=== PATIENT | male | born 1965 | race African-American/Black ===

== ENCOUNTER → 2021-01-25 11:06 | Outpatient (CLI) | payer OTHER, SELFPAY ==
--- NOTE | 2021-01-25 | DI.RAD.S_ITS ---
PROCEDURE: FL BARIUM SWALLOW INDICATIONS: Dysphagia COMPARISON: None. FINDINGS: Function: There is normal esophageal peristalsis. No elicited gastroesophageal reflux. There is normal transit of a calibrated barium tablet through the esophagus into the stomach. Morphology: The upper esophagus at level of upper esophageal sphincter appears somewhat irregular. Esophagus is otherwise normal mucosal morphology. No esophageal strictures, extrinsic mass effects, or diverticula. There is a small hiatal hernia. Limited images of the stomach demonstrate normal appearance. Note is made of moderate degenerative disc disease with prominent anterior osteophytes at C4-C5 and C5-C6. IMPRESSION: 1. There is irregularity of the upper esophagus at the upper esophageal sphincter. Upper endoscopy is suggested for follow-up evaluation. 2. Small hiatal hernia. 3. Degenerative disc disease. There are prominent anterior osteophytes at C4-C5 and C5-C6. Dictated by: Zafar Castro M.D. on 01/25/2021 at 12:40 Approved by: Zafar Castro M.D. on 01/25/2021 at 12:55
== END ==
PROVIDERS: PCP Internal Medicine; Referring Provider Internal Medicine Gastroenterology; Visit Provider Internal Medicine Gastroenterology
DX: R13.10 Dysphagia, unspecified (principal); K44.9 Diaphragmatic hernia without obstruction or gangrene; M50.321 Other cervical disc degeneration at C4-C5 level
CPT/HCPCS: 74220

== ENCOUNTER → 2021-03-21 12:57 | Outpatient (CLI) | payer OTHER, SELFPAY ==
[2021-03-21 16:51] LABS: COVID19 -Nasal RAPID Negative (Negative)
== END ==
PROVIDERS: PCP Internal Medicine; Visit Provider Physician Assistant
DX: Z01.812 Encounter for preprocedural laboratory examination (principal); Z20.822 Contact with and (suspected) exposure to COVID-19
CPT/HCPCS: 87635

== ENCOUNTER 2021-03-23 09:05 | Day surgery (SDC) | payer OTHER, SELFPAY ==
[2021-03-23] VITALS (8 sets, daily range): BP systolic 88–129; BP diastolic 50–84; PULSE 55–67; RESP 16–18; TEMP 36.2–36.7; O2SAT 97–100; BMI 29.0
[2021-03-23] MEDS: SODIUM CHLORIDE 0.9% 1,000 ML 100 ML IV (09:45)
--- NOTE | 2021-03-23 10:33 | PM.HP.1 ---
History of Present Illness History of Present Illness Date Patient Seen: 03/23/21 Chief complaint: SDC Narrative: Dysphagia Patient History Medical History (Updated 03/22/21 @ 14:51 by Wanda Gunn RN) GE reflux Hyperlipidemia Family & Social History Social History: household members spouse Tobacco & Substance use: Smoking Status Former smoker alcohol intake former Substance Use Type does not use Meds Home Medications and Allergies Home Medications Medication Instructions Recorded Confirmed Type ESOMEPRAZOLE SODIUM (NEXIUM) 20 mg PO BIDAC #0 01/16/12 03/23/21 History Claritin PO PRN 03/22/21 History Allergies Allergy/AdvReac Type Severity Reaction Status Date / Time No Known Drug Allergies Allergy Verified 03/23/21 09:26 Exam Vital Signs (past 8 hours): - 03/23/21 09:35 Temperature 97.2 F L Pulse Rate 62 Respiratory Rate 16 Blood Pressure 117/75 Pulse Oximetry 99 Oxygen Delivery Method Room Air Narrative Exam Narrative: Oropharynx free of lesions Chest clear to auscultation percussion Cardiac exam reveals no S3 or murmur Assessment & Plan Assessment & Plan narrative: Dysphagia rule out stricture. Risks, benefits, alternatives have been explained.
--- NOTE | 2021-03-23 10:34 | PM.OP.ENDO ---
Operative Date/Time/Diagnoses Date of procedure: 03/23/21 Pre-op diagnosis: See indication and findings Procedure & Clinicians Study performed: EGD Same procedure as scheduled: Yes Indications: Dysphagia Surgeon: Meir Hilario Procedure Notes Procedure in detail: After informed consent was obtained the patient was placed in left lateral decubitus position. The video upper scope was placed into the oropharynx and with the patient's help swallowed into the esophagus. The esophagus stomach and duodenum were carefully examined. On withdrawal, retroflexed view the GE junction was performed. Scope was removed. The patient tolerated procedure well. Blood loss none Complications none Sedation Total sedation time 10 minutes Versed for 6 mg fentanyl 100 micro g IV titration Findings 1. No abnormality at the upper esophageal sphincter. No evidence for a Zenker's diverticulum nor any evidence to correspond to the ?irregularities in Yuri did and the time of barium swallow. 2. Somewhat edematous mucosa at the distal esophagus. In addition at least 2 erosions were seen for LA classification B. 3. Normal stomach proximal and distally 4. Normal duodenal bulb and sweep Patient should increase his omeprazole to 20 b.i.d. and then touch base with us again in 2-4 weeks. If dysphagia not much improved then consider esophageal manometry.
[2021-03-23] MEDS: fentaNYL 250 MCG/5 ML INJ IV (11:03)
[2021-03-23] MEDS: MIDAZOLAM 5 MG/5 ML VIAL IV (11:11)
--- NOTE | 2021-03-23 12:40 | SUR.PHASEII ---
1205-Pt up and ambulating gait steady, all dc instructions given and pt verbalizes understanding, dressed and ready to go. Pt dcd via wc in stable condition with no complaints and in good spirits
== END 2021-03-23 12:05 | disposition home or self-care (01) ==
PROVIDERS: PCP Internal Medicine; Referring Provider Internal Medicine Gastroenterology; Visit Provider Internal Medicine Gastroenterology
PROC: 0DJ08ZZ Inspection of Upper Intestinal Tract, Via Natural or Artificial Opening Endoscopic (ICD-10-PCS; CPT 43235; principal; 2021-03-23 10:30)
DX: R13.10 Dysphagia, unspecified (principal); E78.5 Hyperlipidemia, unspecified
CPT/HCPCS: 43235; J2250; J3010

== ENCOUNTER 2022-04-30 19:34 | Emergency (ER) | payer OTHER, SELFPAY ==
[2022-04-30 19:47] VITALS: BP 124/83; PULSE 106; RESP 20; TEMP 36.8; O2SAT 96; BMI 27.2
[2022-04-30 20:40] VITALS: O2SAT 100
[2022-04-30 20:41] VITALS: BP 132/89; PULSE 83; O2SAT 99
--- NOTE | 2022-04-30 21:44 | ED_ITS ---
HPI - General Adult General Chief complaint: Extremity Injury, Upper Stated complaint: left shoulder pain/knot/pinched nerve x5 days Time Seen by Provider: 04/30/22 21:43 Source: patient Mode of arrival: Ambulatory History of Present Illness HPI narrative: Otherwise healthy 56-year-old gentleman with a history of occasional neck pain and low back pain getting back to the gym and had increased weights on April 23. Or overhead work and heavier weights overall. [place] fine while he was doing the exercises by the next day he noted some tenderness in the upper portion of the trapezius muscle left side. That spasm has gotten progressively worse over the last 3-4 days and now is causing radicular pain down the left arm in a C6 distribution. He is not having numbness or weakness simply severe pain that is causing him to lose sleep. He is having difficulty finding a comfortable position to even relax into. He has been using ibuprofen, Tylenol and methocarbamol. The methocarbamol helped slightly with the muscle spasm none of the medications are helping with radicular nerve pain. He has had no fever, cough, chills. No nausea, vomiting, abdominal pain, constipation or diarrhea. No chest pain palpitations or headache. Related Data Home Medications Medication Instructions Recorded Confirmed Claritin PO PRN allergies 03/22/21 01/18/22 omeprazole 20 mg tablet,delayed 20 mg PO DAILY 01/18/22 01/18/22 release Previous Rx's Medication Instructions Recorded celecoxib 200 mg capsule (Celebrex) 200 mg PO DAILY #30 caps 04/24/22 dexamethasone 4 mg tablet 10 mg PO DAILY #5 tabs 04/30/22 methocarbamol 500 mg tablet 500 mg PO TID #20 tabs 04/30/22 oxycodone-acetaminophen 5 mg-325 1 tab PO Q6H PRN pain #10 tabs 04/30/22 mg tablet Allergies Allergy/AdvReac Type Severity Reaction Status Date / Time No Known Drug Allergies Allergy Verified 01/18/22 08:17 Review of Systems Review of Systems Narrative: Remainder of complete review of systems is otherwise unremarkable except for th at included in the HPI. Patient History Medical History Acute degenerative joint disease of shoulder region GE reflux Hyperlipidemia Shoulder impingement syndrome Supraspinatus sprain Surgical History H/O colonoscopy History of esophagogastroduodenoscopy (EGD) Family History Father AA (alcohol abuse) Social History household members: spouse Smoking Status: Former smoker alcohol intake: former Smoking Status: Former smoker Substance Use Type: does not use Exam Initial Vital Signs Initial Vital Signs: Vital Signs Temperature 98.2 F 04/30/22 19:47 Pulse Rate 106 H 04/30/22 19:47 Respiratory Rate 20 04/30/22 19:47 Blood Pressure 124/83 04/30/22 19:47 Pulse Oximetry 96 04/30/22 19:47 Oxygen Delivery Method 04/30/22 19:47 General: Alert appropriate, able to cooperate fully with exam. Continuous movement attempting to find a comfortable position for his neck and arm Neck: No midline cervical tenderness. He does have some tenderness and palpable spasm in the upper trapezius muscle on the left side. No skin changes, rashes down the posterior aspect of his arm. Respiratory: Able to speak in full sentences, no obvious respiratory distress Skin: No obvious rashes, warm and dry Neurologic: Grossly intact no obvious asymmetries or abnormalities, no parest hesia or weakness appreciated in the left upper arm, elbow, wrist flexion/extension, hand pr fingers Psych: appropriate insight and affect, cooperative Course Orders Ordered: Discontinued Medications Dexamethasone (Dexamethasone 4 Mg Tablet) 8 mg PO NOW ONE Stop: 04/30/22 22:01 Last Admin: 04/30/22 22:10 Dose: 8 mg Documented By: LUKAS Ketorolac Tromethamine (Ketorolac 30 Mg/Ml Vial) 30 mg IM NOW ONE Stop: 04/30/22 22:01 Last Admin: 04/30/22 22:10 Dose: 30 mg Documented By: LUKAS Oxycodone/Acetaminophen (Oxycodone/Acetaminophen 5/325 Tablet) 1 tab PO NOW ONE Stop: 04/30/22 22:01 Last Admin: 04/30/22 22:11 Dose: 1 tab Documented By: LUKAS Oxycodone/Acetaminophen (Oxycodone/Apap 5/325 Prepack) 1 bottle MISC SEEINSTR ONE Stop: 04/30/22 22:01 Last Admin: 04/30/22 22:10 Dose: 1 bottle Documented By: KP Vital Signs Vital signs: Vital Signs - 8 hr 04/30/22 20:40 04/30/22 20:41 04/30/22 20:41 Pulse Rate 83 Blood Pressure 132/89 Pulse Oximetry 100 99 04/30/22 22:16 04/30/22 22:16 Pulse Rate Blood Pressure 151/79 H Pulse Oximetry 94 Medical Decision Making MDM Narrative Medical decision making narrative: 56-year-old gentleman with mild overuse injury trapezius neck muscle spasm now with radiculopathy. No evidence of acute trauma, diskitis, epidural abscess. He is given a soft collar, 3 days of Decadron and 3 day course of Percocet to help with the severe pain. He will follow-up with his orthopedic surgeon at symptoms are not improving. He is safe for home discharge Discharge Plan Departure Patient Disposition: Home Clinical Impression: Trapezius muscle spasm, Radicular pain in left arm Instructions: DI for Sciatica, DI for Arm Pain Activity Restrictions/Additional Instructions: Thank you for coming in today I am sorry you are suffering with this. You clearly irritated your trapezius muscle in her having significant muscle spasm. For this, using 400 mg of ibuprofen (2 [id number] pills) and 1 Tylenol every 6 hours can be very helpful in controlling pain. You have mentioned that methocarbamol was also helpful. You can continue to use that as well. With the pain traveling down the back of your arm, this is from nerve irritation and is similar to sciatic pain people notice going down there leg from back pain. I suspect that the spasm from the trapezius muscle is pulling at muscles along your cervical spine which than pinching the nerve. I am going to give you 3 days of Decadron, a steroid to help with inflammation. I have also given you a cervical collar to see if that helps simply relaxer neck muscle and gives you a bit more relief. All of this is going to improve. Unfortunately radicular nerve pain can be very difficult to treat. I am going to give you a brief prescription for Percocet to use for severe pain and hopefully allow you some sleep over the next 1-2 days. If symptoms are not improving or are worsening, please follow-up Dr. Vaughn [place] I wish you the best Prescriptions: New oxycodone-acetaminophen 5-325 mg tablet 1 tab PO Q6H PRN (Reason: pain) Qty: 10 0RF dexamethasone 4 mg tablet 10 mg PO DAILY Qty: 5 0RF methocarbamol 500 mg tablet 500 mg PO TID Qty: 20 0RF No Action Claritin PO PRN (Reason: allergies) omeprazole 20 mg tablet,delayed release (DR/EC) 20 mg PO DAILY celecoxib [Celebrex] 200 mg capsule 200 mg PO DAILY Qty: 30 2RF Referrals: Dimitry Mayo MD [Primary Care Provider] - Visit Report Forms: Patient Portal/API
[2022-04-30] MEDS: OXYCODONE/APAP 5/325 PREPACK 1 BOTTLE MISC (22:10)
[2022-04-30] MEDS: dexAMETHasone 4 MG TABLET 8 MG PO (22:10)
[2022-04-30] MEDS: KETOROLAC 30 MG/ML VIAL IM (22:10)
[2022-04-30] MEDS: OXYCODONE/ACETAMINOPHEN 5/325 TABLET 1 TAB PO (22:11)
[2022-04-30 22:16] VITALS: BP 151/79; O2SAT 94
== END 2022-04-30 22:28 | disposition home or self-care (01) ==
PROVIDERS: Emergency Provider Emergency Medicine; PCP Family Medicine
DX: M62.830 Muscle spasm of back (principal); M79.602 Pain in left arm
CPT/HCPCS: 96372; 99283; 99284; J1885

== ENCOUNTER 2024-04-06 06:55 | Emergency (ER) | payer OTHER, SELFPAY ==
[2024-04-06] VITALS (12 sets, daily range): BP systolic 117–147; BP diastolic 76–91; PULSE 65–87; RESP 12–23; TEMP 36.8; O2SAT 73–99; BMI 29.6
--- NOTE | 2024-04-06 07:05 | EKG_ITS ---
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
--- NOTE | 2024-04-06 07:08 | DI.RAD.S_ITS ---
PROCEDURE: XR CHEST 1V INDICATIONS: chest pain TECHNIQUE: One view of the chest was acquired. COMPARISON: None. FINDINGS: Surgical changes and devices: None. Lungs and pleura: Lungs are clear. No pleural effusions or pneumothorax. Mediastinum: Mediastinal contours appear normal. Heart size is normal. Bones and chest wall: No suspicious bony lesions. Overlying soft tissues appear unremarkable. IMPRESSION: No acute cardiopulmonary abnormality is seen. There is no significant discrepancy when compared to the overnight preliminary report. Approved by: Willem Ledesma M.D. on 04/06/2024 at 7:29
[2024-04-06 07:17] LABS: Add Manual Diff / Slide Review NO; Basophils Absolute Auto 100 /uL (0-100); Basophils Percent Auto 1.1 % (0-2); Eosinophils Absolute Auto 100 /uL (0-450); Eosinophils Percent Auto 0.6 % (2-4); Hematocrit 42.4 % (41-53); Hemoglobin 14.9 g/dL (13.5-17.5); Lymphocytes Absolute Auto 3300 /uL (1100-4500); Lymphocytes Percent Auto 40.2 % (25-40); Mean Corpuscular HGB Conc 35.1 % (30-36); Mean Corpuscular Hemoglobin 29.4 PG (26-34); Mean Corpuscular Volume 83.7 fL (80-100); Monocytes Absolute Auto 500 /uL (0-900); Monocytes Percent Auto 5.5 % (3-14); Neutrophils Absolute Auto 4300 /uL (1500-7000); Neutrophils Percent Auto 52.6 % (50-75); Platelet Count 240 X10^3/uL (150-400); Red Blood Cell Count 5.07 X10^6/uL (4.5-5.9); Red Cell Distribution Width 13.9 % (11.6-14.8); White Blood Cell Count 8.2 X10^3/uL (4.5-11.0)
[2024-04-06 07:22] LABS: PTT Partial Thromboplastin Tim 40 SECONDS (25.1-36.5)
--- NOTE | 2024-04-06 07:24 | ED.CHESTPAIN ---
HPI - Chest Pain General Chief Complaint: Chest Pain Stated Complaint: Chest Pain, Tight chest, High BP Time Seen by Provider: 04/06/24 07:05 Source: patient Mode of arrival: Ambulatory History of Present Illness HPI narrative: Patient is a 58-year-old male history of hyperlipidemia otherwise healthy presenting today with chest tightness. He reports that this morning test discomfort woke him up. He felt like he had some gas or needed burn. He actually got up walked around and it made his pain better. It did kind of radiate to both shoulders. He denies any sort of shortness of breath diaphoresis or nausea. He has no known history of coronary artery disease. No family history of coronary artery disease. He has a nonsmoker. Denies any sort of nausea vomiting abdominal pain. He took multiple things for antacid including baking soda [place] and others. Pain seems to be worse when he lies down better when he sits up. He has never had anything like this before. Related Data Home Medications Medication Instructions Recorded Confirmed Claritin PO PRN allergies 03/22/21 01/18/22 omeprazole 20 mg tablet,delayed 20 mg PO DAILY 01/18/22 01/18/22 release Previous Rx's Medication Instructions Recorded celecoxib 200 mg capsule (Celebrex) 200 mg PO DAILY #30 caps 04/24/22 dexamethasone 4 mg tablet 10 mg (2.5 x 4 mg) PO DAILY #5 tabs 04/30/22 methocarbamol 500 mg tablet 500 mg PO TID #20 tabs 04/30/22 oxycodone-acetaminophen 5 mg-325 1 tab PO Q6H PRN pain #10 tabs 04/30/22 mg tablet Allergies Allergy/AdvReac Type Severity Reaction Status Date / Time No Known Drug Allergies Allergy Verified 01/18/22 08:17 Patient History Medical History Supraspinatus sprain Acute degenerative joint disease of shoulder region Shoulder impingement syndrome Hyperlipidemia GE reflux Surgical History History of esophagogastroduodenoscopy (EGD) H/O colonoscopy Family History Father AA (alcohol abuse) Social History household members: spouse Smoking Status: Former smoker alcohol intake: former Smoking Status: Former smoker Substance Use Type: does not use Exam Initial Vital Signs Initial Vital Signs: Vital Signs Pulse Rate 65 04/06/24 07:04 Respiratory Rate 12 04/06/24 07:04 Pulse Oximetry 96 04/06/24 07:04 GENERAL: Alert pleasant well-appearing 58-year-old male and in no acute distress. HEENT: Head atraumatic,EOMI, pupils reactive, face symmetric, moist mucous membranes CARDIOVASCULAR: Regular rate and rhythm without murmurs, rubs or gallops. RESPIRATORY: Breath sounds equal bilaterally, no wheezes rales or rhonchi. ABDOMEN: Soft, nontender. Normoactive bowel sounds all 4 quadrants. No guarding or rebound. EXTREMITIES: Normal range of motion, no clubbing or edema. Neurovascularly intact NEUROLOGICAL: Alert and oriented x4.Normal gait and speech. Cranial nerves II through XII grossly intact. SKIN: Warm, dry, no laceration, no petechiae, no rashes or lesions. Scores HEART Score Heart Score history: Slightly Suspicious Heart Score EKG: Normal Heart Score Age: 45-64 years old Heart Score risk factors: 1-2 risk factors Heart Score troponin: < or = to normal limit Heart Score Total: 2 Course Orders Ordered: ED Orders 04/06/24 07:06 Complete Blood Count AUTO DIFF Stat Comprehensive Metabolic Panel Stat D Dimer Stat Lipase Stat NT-proBNP (BNP-Adult 18+) Stat PTT Partial Thromboplastin [place] Stat Prothrombin Time INR Stat Troponin & CK Cardiac Panel Stat 04/06/24 07:08 XR chest 1V Stat EKG-12 Lead Stat 04/06/24 09:00 Trop I [Troponin I] Stat EKG-12 Lead Stat Discontinued Medications Aspirin (Aspirin 81 Mg Chew Tab) 324 mg PO NOW ONE Stop: 04/06/24 07:09 Last Admin: 04/06/24 07:43 Dose: 324 mg Documented By: COLETTE Ketorolac Tromethamine (Ketorolac 30 Mg/Ml Vial) 15 mg IV NOW ONE Stop: 04/06/24 08:35 Last Admin: 04/06/24 10:33 Dose: Not Given Documented By: COLETTE Pantoprazole Sodium (Pantoprazole 40 Mg Vial) 40 mg IV NOW ONE Stop: 04/06/24 07:37 Last Admin: 04/06/24 07:42 Dose: 40 mg Documented By: COLETTE Vital Signs Vital signs: Vital Signs - 8 hr 04/06/24 07:04 04/06/24 07:05 04/06/24 07:05 Temperature 98.3 F Pulse Rate 65 75 65 Respiratory Rate 12 16 18 Blood Pressure 136/80 Pulse Oximetry 96 97 96 Oxygen Delivery Method Room Air 04/06/24 07:05 04/06/24 07:30 04/06/24 07:31 Temperature Pulse Rate 65 66 Respiratory Rate 23 19 Blood Pressure 141/77 H Pulse Oximetry 97 97 Oxygen Delivery Method 04/06/24 07:31 04/06/24 08:00 04/06/24 08:00 Temperature Pulse Rate 66 Respiratory Rate 14 Blood Pressure 139/91 H 147/88 H Pulse Oximetry 95 Oxygen Delivery Method 04/06/24 08:32 04/06/24 08:45 04/06/24 08:45 Temperature Pulse Rate 87 70 Respiratory Rate 17 22 Blood Pressure 119/76 Pulse Oximetry 73 L 97 Oxygen Delivery Method 04/06/24 09:00 04/06/24 09:00 04/06/24 09:15 Temperature Pulse Rate 76 72 Respiratory Rate 18 16 Blood Pressure 117/80 Pulse Oximetry 97 96 Oxygen Delivery Method 04/06/24 09:15 04/06/24 09:30 04/06/24 09:30 Temperature Pulse Rate 70 Respiratory Rate 21 Blood Pressure 136/81 117/76 Pulse Oximetry 97 Oxygen Delivery Method 04/06/24 09:45 04/06/24 09:45 04/06/24 10:00 Temperature Pulse Rate 70 Respiratory Rate 13 Blood Pressure 121/79 124/79 Pulse Oximetry 99 Oxygen Delivery Method 04/06/24 10:00 Temperature Pulse Rate 68 Respiratory Rate 18 Blood Pressure Pulse Oximetry 97 Oxygen Delivery Method MDM - Chest Pain Lab Data 04/06/24 07:06 04/06/24 07:06 Labs: Lab Results 04/06/24 04/06/24 Range/Units 07:06 09:00 WBC 8.2 (4.5-11.0) X10^3/uL RBC 5.07 (4.5-5.9) X10^6/uL Hgb 14.9 (13.5-17.5) g/dL Hct 42.4 (41-53) % MCV 83.7 (80-100) fL MCH 29.4 (26-34) PG MCHC 35.1 (30-36) % RDW 13.9 (11.6-14.8) % Plt Count 240 (150-400) X10^3/uL Neut % (Auto) 52.6 (50-75) % Lymph % (Auto) 40.2 H (25-40) % [place] % (Auto) 5.5 (3-14) % Eos % (Auto) 0.6 L (2-4) % Baso % (Auto) 1.1 (0-2) % Neut # (Auto) 4300 (2396-0139) /uL Lymph # (Auto) 3300 (7644-4635) /uL [place] # (Auto) 500 (0-900) /uL Eos # (Auto) 100 (0-450) /uL Baso # (Auto) 100 (0-100) /uL PT 11.0 (9.4-12.5) SECONDS INR 1.0 (0.9-1.3) APTT 40 H (25.1-36.5) SECONDS D-Dimer 464 (<500) ng/ml Sodium 139 (137-145) mmol/L Potassium 3.9 (3.4-5.1) mmol/L Chloride 104 (98-107) mmol/L Carbon Dioxide 30 (22-32) mmol/L BUN 11 (9-20) mg/dL Creatinine 1.20 (0.66-1.25) mg/dL Estimated GFR > 60 (>60) mL/min BUN/Creatinine Ratio 9.2 (6-22) Glucose 126 H (70-100) mg/dL Calcium 9.1 (8.4-10.2) mg/dL Total Bilirubin 1.1 (0.2-1.3) mg/dL AST 28 (17-59) IU/L ALT 24 (<50) IU/L Alkaline Phosphatase 65 (38-126) U/L Total Creatine Kinase 319 H (55-170) U/L Troponin I < 0.012 < 0.012 (0.01-0.034) ng/mL NT-Pro-B Natriuret Pep < 20 (<125) pg/mL Total Protein 7.8 (6.3-8.2) g/dL Albumin 4.5 (3.5-5.0) g/dL Globulin 3.3 (1.7-4.1) g/dL Albumin/Globulin Ratio 1.4 (1.0-2.8) Lipase 132 (23-300) U/L Imaging Data Chest x-ray: Radiologist's Impression: PROCEDURE: XR CHEST 1V INDICATIONS: chest pain TECHNIQUE: One view of the chest was acquired. COMPARISON: None. FINDINGS: Surgical changes and devices: None. Lungs and pleura: Lungs are clear. No pleural effusions or pneumothorax. Mediastinum: Mediastinal contours appear normal. Heart size is normal. Bones and chest wall: No suspicious bony lesions. Overlying soft tissues appear unremarkable. IMPRESSION: No acute cardiopulmonary abnormality is seen. There is no significant discrepancy when compared to the overnight preliminary report. Approved by: Willem Ledesma M.D. on 04/06/2024 at 7:29 ECG Data Attestation: I personally reviewed and interpreted this ECG as follows: Prior ECG tracings: not available for review Interpretation: Normal sinus rhythm rate 65 MN interval 172 QRS 84 QTC 416 Q-wave noted in lead [address] changes EKG 2. Sinus rhythm rate 73 no ischemic changes similar to previous EKGs MDM Narrative Medical decision making narrative: Patient 58-year-old male with no known medical history presenting today with chest discomfort. It is actually better with exertion worse with rest. Actually worse with lying down and better sitting up. Blood work today has been reviewed and overall reassuring. He is 2- troponins, D-dimer negative (464, less than 500) BNP negative Chest x-ray no acute cardiopulmonary process EKG has also been reviewed no acute cardiopulmonary process Differential diagnosis acute coronary syndrome, pericarditis, pulmonary embolism, acid reflux, dissection At this time heart score is 2, recommend outpatient follow-up I think unlikely to be acute coronary syndrome. Possible acid reflux. No evidence of pericarditis on EKG. Patient was given aspirin Toradol and Protonix. He has feeling a bit better. At this time think any further imaging is indicated. Patient reports that feeling and chest discomfort definitely got better when he was sitting right and better with exertion this is not typical for acute coronary syndrome. He has a low risk heart score however I did discuss at length with patient and that he still should proceed with outpatient testing such as echocardiogram and stress test. Also strongly encouraged him to return to the ED if you should have worsening chest pain. Discharge Plan Departure Patient Disposition: Home Clinical Impression: Atypical chest pain Instructions: DI for Atypical Chest Pain Activity Restrictions/Additional Instructions: *You have been diagnosed with atypical chest pain *What to do: At this time please talk with your primary provider about further cardiac workup including echocardiogram and stress test. At this time it has not indicated that you stay in the emergency department for these testing done *Continue to take medications as directed Omeprazole 20 mg once a day may find [id number] *Follow up with your primary care provider in 2-3 days or call [phone] *Return to ER if you should have increasing chest pain shortness of breath nausea vomiting or any new, worsening or concerning symptoms Prescriptions: No Action oxycodone-acetaminophen 5-325 mg tablet 1 tab PO Q6H PRN (Reason: pain) Qty: 10 0RF dexamethasone 4 mg tablet 10 mg PO DAILY Qty: 5 0RF methocarbamol 500 mg tablet 500 mg PO TID Qty: 20 0RF Claritin PO PRN (Reason: allergies) omeprazole 20 mg tablet,delayed release (DR/EC) 20 mg PO DAILY celecoxib [Celebrex] 200 mg capsule 200 mg PO DAILY Qty: 30 2RF Referrals: Dimitry Mayo MD [Primary Care Provider] - Stand Alone Forms: Patient Portal/API
[2024-04-06 07:25] LABS: Alanine Aminotransferase 24 IU/L (<50); Albumin 4.5 g/dL (3.5-5.0); Albumin Globulin Ratio 1.4 (1.0-2.8); Alkaline Phosphatase 65 U/L (38-126); Aspartate Aminotransferase 28 IU/L (17-59); BUN Creatinine Ratio 9.2 (6-22); Bilirubin Total 1.1 mg/dL (0.2-1.3); Blood Urea Nitrogen 11 mg/dL (9-20); Calcium 9.1 mg/dL (8.4-10.2); Carbon Dioxide 30 mmol/L (22-32); Chloride 104 mmol/L (98-107); Creatine Kinase 319 U/L (55-170); Estimated Glomerular Filt Rate > 60 mL/min (>60); Globulin 3.3 g/dL (1.7-4.1); Glucose 126 mg/dL (70-100); HEMOLYSIS < 15 (0-50); Lipase 132 U/L (23-300); Potassium 3.9 mmol/L (3.4-5.1); Sodium 139 mmol/L (137-145); Total Protein 7.8 g/dL (6.3-8.2)
[2024-04-06 07:36] LABS: NT-proBNP (BNP-Adult 18+) < 20 pg/mL (<125); Troponin I < 0.012 ng/mL (0.01-0.034)
[2024-04-06] MEDS: PANTOPRAZOLE 40 MG VIAL IV (07:42)
[2024-04-06] MEDS: ASPIRIN 81 MG CHEW TAB 324 MG PO (07:43)
[2024-04-06 08:56] LABS: D Dimer 464 ng/ml (<500)
--- NOTE | 2024-04-06 09:00 | PC.NURSE ---
Pt sitting up in the chair. Denies pain. A&Ox4.
--- NOTE | 2024-04-06 09:04 | EKG_ITS ---
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
[2024-04-06 09:30] LABS: Troponin I < 0.012 ng/mL (0.01-0.034)
== END 2024-04-06 10:24 | disposition home or self-care (01) ==
PROVIDERS: Emergency Provider Emergency Medicine; PCP Family Medicine
DX: R07.89 Other chest pain (principal)
CPT/HCPCS: 36415; 71045; 80053; 82550; 83690; 83880; 84484; 85025; 85379; 85610; 85730; 93005; 96374; 99284; C9113

== ENCOUNTER → 2024-06-20 07:59 | Outpatient (CLI) | payer OTHER, SELFPAY ==
--- NOTE | 2024-06-20 20:12 | DI.NM.S_ITS ---
DATE OF SERVICE: 06/20/2024 PROCEDURE: Exercise treadmill stress test without imaging. ORDERING PROVIDER: Kenneth Moore M.D. INDICATIONS: The patient is a 58-year-old male with a recent episode of chest discomfort. FINDINGS: 1. The patient was able to exercise for 9 minutes and 48 seconds on a standard Russell protocol suggesting good exercise capacity with an HARVEY of -6%, achieving 10.1 METS. 2. He had a normal heart rate and blood pressure response to exercise, achieving a maximum heart rate of 169 BPM (104% of his predicted maximum). 3. He had no chest discomfort or other anginal symptoms. 4. His resting ECG shows sinus rhythm with normal ST segments. There are no significant ST-segment shifts or arrhythmias with stress. IMPRESSION: 1. Normal exercise treadmill stress test for ischemia. 2. Good exercise capacity without angina or arrhythmias. [place] Em - ROSLYN/guerita/AY doc#: [id number]/job#: [id number] dd: 06/20/2024 16:07:00 dt: 06/20/2024 19:46:00 DICTATING /COPIES TO: Emigdio Licea MD; Kenneth Moore M.D. COPIES MNE: OPAL;
== END ==
LOC: RAD 08:00
PROVIDERS: PCP Family Medicine; Referring Provider Family Medicine; Visit Provider Family Medicine
DX: R07.89 Other chest pain (principal); Z87.891 Personal history of nicotine dependence
CPT/HCPCS: 93017